=== PATIENT | female | born 1985 | race Caucasian/White ===

== ENCOUNTER → 2017-09-22 10:28 | Outpatient (CLI) | payer OTHER, SELFPAY ==
[2017-09-23 16:21] LABS: HPV Reflexed? NOT INDICATED
== END ==
PROVIDERS: Visit Provider Obstetrics & Gynecology
DX: Z12.4 Encounter for screening for malignant neoplasm of cervix (principal)
CPT/HCPCS: 88175; G0145

== ENCOUNTER → 2017-10-23 10:27 | Outpatient (CLI) | payer OTHER, SELFPAY ==
--- NOTE | 2017-10-23 10:31 | BI_ITS ---
MAMMOGRAPHY - BILATERAL SCREENING REASON FOR EXAM: Female, 32 years old. Routine annual screening examination. PERTINENT HISTORY: Grandmother with breast cancer. History of non-Hodgkin's lymphoma. TECHNIQUE: Digital bilateral breast faisal (3D mammographic acquisition) in the CC and MLO projections. 2-D mediolateral oblique (MLO) and craniocaudad (CC) views of both breasts were obtained. CAD: Full Field Digital Mammography with Computer Added Detection was performed. COMPARISON: None. FINDINGS: Breast Composition: There are scattered areas of fibroglandular density. There are no dominant masses or suspicious calcifications. A port is seen in the left axillary region. No other significant abnormalities are identified. BI/SCREENING MAMM (CAD), BILAT IMPRESSION: Negative screening mammogram. Yearly followup mammogram recommended. (A) ASSESSMENT CATEGORY: BIRADS Category 2: Benign. A letter regarding these results will be sent to the patient by the facility within 30 days. Approximately 10% of breast cancers are not detected by mammography. A normal mammogram should not delay biopsy of a clinically suspicious abnormality. [id number] Electronically Signed: Omari Howell MD at 11:27 EDT Tel [phone], Service support ,
== END ==
PROVIDERS: Visit Provider Obstetrics & Gynecology
DX: Z12.31 Encounter for screening mammogram for malignant neoplasm of breast (principal)
CPT/HCPCS: 77063; 77067

== ENCOUNTER → 2018-09-23 | Outpatient (CLI) | payer OTHER, SELFPAY ==
[2018-09-25 13:27] LABS: HPV Reflexed? NOT INDICATED
== END | disposition home or self-care (01) ==
LOC: LABSPEC 10:45
PROVIDERS: Referring Provider Obstetrics & Gynecology; Visit Provider Obstetrics & Gynecology
DX: Z12.4 Encounter for screening for malignant neoplasm of cervix (principal)
CPT/HCPCS: 88175; G0145

== ENCOUNTER → 2018-10-19 | Outpatient (CLI) | payer OTHER, SELFPAY ==
--- NOTE | 2018-10-19 | IMM_PTH ---
PATIENT: JOHNNY CONTRERAS LOC: [facility] U#:[id number] AGE/SX: 33/F ROOM: RE10/19/[address]: Dr. Soni Barrett MD : 1985 BED: DIS: 10/19/2018 SPEC #: [id number] RECD: 10/20/18 13:21 STATUS: KIMAlin REQ #: [id number] [place]: 10/19/18 00:[address]: Soni Barrett DEPT: IMMUNOHISTOCHEMISTRY RECD BY: Roberta Curiel ENTERED: 10/20/18 13:22 SP TYPE: IMMUNO OT DR: No Primary Care Phys Tissues: A - Uterine cervix, NOS B - Endocervical Procedures: p16 (initial) KI-67 (add) PHYSICIAN & INSTITUTION [place] [phone] SPECIMEN INFORMATION: Tissue Source: A - Cervical biopsy 11 o'clock, B - [facility] Clinical Info: PING Specimen Number: [id number] A & B CPT code: 73878 x2, 47377 x2 METHODOLOGY: Deparaffinized sections of prefer/formalin-fixed tissue or PAP/DQ stained slides are incubated with monoclonal/polyclonal antibodies/oligonucleotide probes. Localization is made via biotin free immunoperoxidase method. Appropriate controls are performed and reacted as expected. Results on target cell population are indicated in the following table: RESULTS: ANTIBODY / CLONE RESULT Block A P16 (E6H4) positive, patchy Ki-67 (30-9) positive, low Block B P16 (E6H4) positive, patchy Ki-67 (30-9) positive, low These tests were developed and their performance characteristics determined by [facility]. They may not have been cleared or approved by the U.[place]. Food and Drug Administration. The FDA has determined that such clearance or approval is not necessary. INTERPRETATION: A. Cervix at 11 o'clock, biopsy: Mild squamous dysplasia/HPV change. B. Endocervix, curettings: Mild squamous dysplasia/HPV change. AM:arturo 10/21/18
--- NOTE | 2018-10-19 10:30 | CER_PTH ---
PATIENT: JOHNNY CONTRERAS LOC: [facility]#:[id number] AGE/SX: 33/F ROOM: RE10/19/[address]: Dr. Soni Barrett MD : 1985 BED: DIS: 10/19/2018 SPEC #: [id number] RECD: 10/19/18 13:31 STATUS: MADY KENIA #: [id number] [place]: 10/19/18 10:[address]: Soni Barrett DEPT: SURGICAL PATHOLOGY RECD BY: Luis Perry ENTERED: 10/19/18 14:05 SP TYPE: CERV OTHR DR: No Primary Care Phys Tissues: A - Uterine cervix, NOS B - Endocervical Procedures: Surgery Specimen Level IV HEADER OPERATION: Colposcopy PRE-OP DIAGNOSIS: LGSIL TISSUE SUBMITTED: A - Cervical biopsy 11 o'clock, B - ECC MICROSCOPIC DIAGNOSIS A. 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 See comment. B. Endocervix, curettings: Detached fragments of squamous epithelium with HPV change/mild dysplasia. Strips of benign superficial endocervix. See comment. AM:arturo 10/20/18 COMMENT A & B. Results from immunohistochemistry ([id number]) for surrogate HPV marker (p16) will be reported separately. MICROSCOPIC DESCRIPTION Slides are reviewed. GROSS DESCRIPTION A - Received in fixative is one container labeled with the patient's name and designated cervical biopsy 11 o'clock. The specimen consists of multiple irregular fragments of light edwards soft tissue that in aggregate measure 0.3 x 0.2 x <0.1 cm. The specimen is totally submitted in one cassette. B - Received in fixative is one container labeled with the patient's name and designated ECC. The specimen consists of light to dark edwards mucoid material aggregating to 1 x 1 x <0.1 cm. The specimen is totally submitted in one cassette. / AM:arturo 10/19/18 TC:5 CPT: 28242 x2
== END | disposition home or self-care (01) ==
PROVIDERS: Visit Provider Obstetrics & Gynecology
DX: N87.0 Mild cervical dysplasia (principal)
CPT/HCPCS: 88305; 88341; 88342

== ENCOUNTER → 2019-04-08 14:44 | Outpatient (CLI) | payer SELFPAY ==
[2019-04-14 15:39] LABS: HPV HC, High Risk Negative (Negative); HPV Reflexed? YES, CHARGE PATIENT
== END ==
PROVIDERS: Visit Provider Obstetrics & Gynecology
DX: R87.612 Low grade squamous intraepithelial lesion on cytologic smear of cervix (LGSIL) (principal)
CPT/HCPCS: 87624; 88175; G0145

== ENCOUNTER 2023-04-17 11:21 | Day surgery (SDC) | payer MEDICAID, SELFPAY ==
[2023-04-17] MEDS: Lactated Ringers 1,000 ML 15 ML IV (12:05)
[2023-04-17 12:42] VITALS: BP 141/81; PULSE 90; RESP 18; TEMP 36.7; O2SAT 98; BMI 42.9
[2023-04-17] MEDS: Cefazolin 2 GM in 0.9% Normal Saline (100mL Bag) 100 ML IV (13:02)
[2023-04-17] MEDS: Bupivacaine Mpf 0.5% 30 ML VIAL (13:22)
[2023-04-17 13:40] VITALS: BP 116/77; BP 141/81; PULSE 101; RESP 14; TEMP 37.4; O2SAT 96
[2023-04-17 13:45] VITALS: BP 127/83; BP 141/81; PULSE 100; RESP 14; O2SAT 98
[2023-04-17 13:50] VITALS: BP 133/81; BP 141/81; PULSE 98; RESP 16; O2SAT 98
[2023-04-17 13:57] VITALS: BP 133/81; BP 141/81; PULSE 94; RESP 16; TEMP 37.1; O2SAT 97
--- NOTE | 2023-04-17 13:57 | DCINST_ITS ---
Discharge Instructions Follow Up Care Test Results: Test results from this visit will be discussed in further detail at your follow- up appointment, if applicable. Discharge Plan Admission Primary Reason for Your Visit: Left carpal tunnel release Attending Provider: Tiago Gupta Primary Care Provider: RADHA TREVIÑO Instructions Additional Instructions / Restrictions: Follow preprinted instructions from your surgeons office Discharge Orders/Prescriptions Prescriptions: New hydrocodone-acetaminophen 5-325 mg tablet 1 tab PO Q6H PRN (Reason: pain) 3 Days Qty: 12 0RF No Action carvedilol 6.25 mg tablet 6.25 mg PO BID venlafaxine 150 mg capsule,extended release 24hr 150 mg PO DAILY atorvastatin 40 mg tablet 40 mg PO QHS ashwagandha extract 120 mg capsule 500 mg PO DAILY Ibuprofen PM 200-38 mg tablet 2 cap PO QHS albuterol sulfate [Ventolin HFA] 90 mcg/actuation HFA aerosol inhaler 1 inh INHALATION PRN PRN (Reason: shortness of breath or wheezing) Patient Comments: INHALE 1 TO 2 PUFFS BY MOUTH EVERY 4 TO 6 HOURS NEEDED FOR SHORTNESS OF BREATH AND FOR WHEEZING Referrals / Follow Up: Tiago Gupta DO [Med Staff - Active Staff] - Care Physician,No Primary [Non-Staff] - Disposition Disposition (needs filled in before D/C Order can be placed): Home, Self Care
--- NOTE | 2023-04-17 13:57 | OP.PCM_ITS ---
Report of Operation Date of Procedure: 04/17/23 Description of Surgical Findings:: Preoperative diagnosis: Left Carpal Tunnel Syndrome Postoperative diagnosis: Left Carpal Tunnel Syndrome Procedure: Left Endoscopic Carpal Tunnel Release Surgeon: Tiago Gupta DO Certified Flex Endoscope Reprocessor: None Anesthesia: MAC with local Anesthestist: Mahesh Brito CRNA Complications: None Drains: None Estimated blood loss: 2 cc Urinary output: None measured IV fluids: 500 cc crystalloid Specimens: None Surgical implants: None Surgical indications: This is a 38 female seen in the outpatient setting diagnosed with left carpal tunnel syndrome. The patient failed nonoperative management in the form of bracing, anti-inflammatory medications, activity modification. Operative intervention in form of endoscopic possible open carpal tunnel release was offered to the left hand. The risks, benefits, alternatives to procedure were reviewed with patient at length in the outpatient setting and he agreed to proceed. Risks included but were not limited to bleeding, infection, loss of life or limb, risk of anesthesia, incomplete release, neurovascular injury, persistent pain, need for additional surgery, stiffness, loss of hand function. Patient expressed understanding wish to proceed with surgery. Informed consent obtained in the office. Description of procedure: Patient was seen in preoperative holding area. Patient was identified by name, medical record number, date of . The operative extremity was marked with a surgical marker. We confirmed informed consent with the patient and all questions were answered to the patient's satisfaction. At time of his procedure, patient was brought to the operative suite and positioned supine a standard operating table. All bony prominences were well- padded. General anesthesia was induced and endotracheal tube placed. The operative upper extremity was then prepped for surgery by first applying a well- padded pneumatic tourniquet to the left forearm. The hand table attached to the left side of the table. We spun the bed 90 degrees. Gentle MAC anesthesia was administered. A tumescent field block was administered with 10 cc 1% lidocaine with epinephrine 1: 100,000. The left upper extremity was then prepped and draped in normal, sterile orthopedic fashion. 2 Ancef was administered prior to incision by anesthesia staff. We performed a timeout at this point confirming side, site, and operation to be performed. No concerns voiced and elected to proceed. I then exsanguinated the left hand and wrist with an Esmarch bandage. Tourniquet was inflated to 250 mmHg which made up for 7 minutes. I first marked a transverse incision on the ulnar aspect of the palmaris longus tendon in the proximal wrist crease approximately 1-1/2 cm in length. Skin was sharply incised with 15 blade scalpel. Superficial veins were cauterized with bipolar cautery. The fatty layer was dissected through bluntly until the antebrachial fascia was encountered. The antebrachial fascia were split in line with the fibers as well as the incision with the Littler scissors. I then placed a skin hook around the antebrachial fascia distally. I open the proximal 1 cm longitudinally of the antebrachial fascia. I then sequentially dilated within the carpal tunnel utilizing Arthrex supplied dilators. I then utilized there synovial elevator to debride the undersurface of the transverse carpal ligament free from synovium. I then removed the elevator and inserted the centerline endoscopic carpal tunnel release system. The transverse carpal ligament was well visualized and free from underlying synovium. I identified its distal aspect by ballotting the skin and perivascular fat was visualized. I then carefully deployed the scalpel from the sheath and, in retrograde fashion, sequentially released the transverse carpal ligament longitudinally. No aberrancies of the median nerve were apparent. Complete release was confirmed with Littler scissors acting as a probe. The tourniquet was then deflated. Hemostasis was excellent. Skin was closed with interrupted horizontal mattress sutures of 4-0 nylon suture. Sterile compression dressing was then applied. Patient tolerated procedure well without apparent complication.She was transferred to PACU in stable condition. Post Operative Plan: Weightbearing: Nonweightbearing operative extremity Antibiotics: Ancef 2 g x 1 dose preoperatively DVT Prophylaxis: None indicated Navarrete: None Dressing: Maintain x2 days then okay to remove and leave open to air X-Rays: None Pain Medication: Rogers Rx upon discharge Follow-up: 2 weeks post-operatively with me in the office
[2023-04-17 14:20] VITALS: BP 141/81
== END 2023-04-17 14:44 | disposition home or self-care (01) ==
LOC: SDC 11:25 → AC 11:25
PROVIDERS: PCP Family Medicine; Referring Provider Student in an Organized Health Care Education/Training Program; Visit Provider Student in an Organized Health Care Education/Training Program
PROC: (CPT 29848; principal; 2023-04-17 12:50)
DX: G56.03 Carpal tunnel syndrome, bilateral upper limbs (principal); E66.01 Morbid (severe) obesity due to excess calories; Z68.41 Body mass index [BMI] 40.0-44.9, adult; E11.9 Type 2 diabetes mellitus without complications; M18.12 Unilateral primary osteoarthritis of first carpometacarpal joint, left hand; Z79.899 Other long term (current) drug therapy; E78.00 Pure hypercholesterolemia, unspecified
CPT/HCPCS: 29848; 01830; J7120; J2405